=== PATIENT | male | born 1930 | race Caucasian/White ===

== ENCOUNTER 2016-07-10 20:11 | Emergency (ER) | payer OTHER, MEDICARE ==
[2016-07-10 21:38] VITALS: TEMP 99.1
--- NOTE | 2016-07-10 21:41 | EDPHY ---
H & P Time Seen by Provider: 07/10/16 20:33 HPI/ROS: HPI Zayas catheter problem. 86-year-old male by ambulance from home with history of chronic debility. Patient is a Zayas catheter. He is with his caregiver. Apparently his caregiver noticed that the Zayas catheter was not draining earlier in the evening. She called his home health care nurse. She came to the house. She apparently tried to flush the catheter by pushing it in and out according to the caregiver. She was unable to flush it. She stated that she did not have a replacement catheter. He was then sent to the emergency department for evaluation. Apparently on transport the Zayas catheter was pulled out. ROS: Constitutional: No fever, no chills. No weakness. Eyes: No discharge. No changes in vision. Respiratory: No cough. No shortness of breath. Cardiac: No chest pain, no palpitations. Gastrointestinal: No abdominal pain, no vomiting, no diarrhea. Genitourinary: As above. Musculoskeletal: As above per Neurological: No headache. Review of systems obtained through his caregiver and the patient. Past medical history: Urinary retention, chronic debility, renal failure, hypernatremia, dysphagia. Social history: Here with caregiver. Has / home health care. Physical Exam: General Appearance: Alert. This patient appears well-hydrated and well- nourished. Eyes: Pupils equal and round no pallor or injection. No lid edema, erythema or injection. : Some bleeding from the penile meatus. Gastrointestinal: Abdomen is soft and nontender, no masses, bowel sounds normal. No focal tenderness at McBurney's point. No Ann sign. Neurological: Motor sensory function i baseline. Skin: Warm and dry, no rashes. Extremities are symmetrical. Psychiatric: No agitation. Database: EKG: Imaging: Procedures: Emergency department course: Zayas catheter easily replaced with a 16 Romanian coude tip catheter. No complications. Good flow. No active hemorrhage. Caregiver feels comfortable going home with him. Return to emergency department precautions discussed. Follow-up reviewed. All of her questions were answered. The patient was discharged in good condition by ambulance back to home with his caregiver. Differential Diagnosis: The differential diagnosis on this patient includes but is not limited to Zayas catheter obstruction, Zayas catheter removal. This represents a partial list of diagnoses considered. These considerations are based on history, physical exam, past history and reassessment. Smoking Status: Never smoked Allergies/Adverse Reactions: No Known Allergies Allergy (Unverified 04/15/11 16:36) Home Medications: Medication Instructions Recorded FLUoxetine 05/31/16 Jalil 05/31/16 Departure - Departure Disposition: Home, Routine, Self-Care Clinical Impression: Dislodged Zayas catheter Condition: Good Instructions: Zayas Catheter Placement and Care (ED) Additional Instructions: Read and follow provided instructions. Follow-up with your home health care nurse tomorrow as discussed. Return to the emergency department for Zayas catheter obstruction, fever or other concerns Referrals: Patient,NotPresent [Primary Care Provider] - As per Instructions
[2016-07-10 21:51] VITALS: RESP 16
[2016-07-10 23:12] VITALS: BP 107/71; PULSE 95; O2SAT 96
== END 2016-07-10 23:08 | disposition home or self-care (01) ==
LOC: EDUNIT#
PROC: 0T9B70Z Drainage of Bladder with Drainage Device, Via Natural or Artificial Opening (ICD-10-PCS; principal; 2016-07-10)
DX: T83.098A Other mechanical complication of other urinary catheter, initial encounter (principal); Y73.8 Miscellaneous gastroenterology and urology devices associated with adverse incidents, not elsewhere classified

== ENCOUNTER 2017-02-26 23:54 | Inpatient (IN) | payer OTHER, MEDICARE ==
[2017-02-26] MEDS ORDERED: NS 1,000 ML IV ONE (23:59)
--- NOTE | 2017-02-27 00:01 | EDPHY ---
H & P HPI/ROS: HPI CHIEF COMPLAINT: Fever at home, TMAX 101 HISTORY OF PRESENT ILLNESS: Patient very pleasant 86-year-old male, significant past medical history for urinary retention, failure to thrive, chronic debility, acute renal failure, hyponatremia, chronic dysphagia he presents emergency room by EMS from private residence where he lives independently with 24 hour caretakers. He presents emergency room for fever 101. The patient has no complaints. However was noted by EMS that was hypoxic 88% on room air. He does not normally wear oxygen. Upon arrival to the emergency room he looks chronically ill. Dehydrated. Dry mucous membranes. And hypoxic. Noted this patient is a DNR on the MOST FORM. Past Medical History: Urinary retention with indwelling Zayas catheter, failure to thrive, chronic debility, acute renal failure, hypernatremia, dysphagia Past Surgical History: Tonsillectomy, pilonidal cyst Social History: Denies daily use of drugs tobacco products been Family History: Noncontributory ROS REVIEW OF SYSTEMS: A comprehensive 10 point review of systems is otherwise negative aside from elements mentioned in the history of present illness. Exam Constitutional appears chronically ill, dehydrated triage nursing summary reviewed, vital signs reviewed, awake/alert. Eyes normal conjunctivae and sclera, EOMI, PERRLA. HENT oropharynx is open, dry, dry secretions in the posterior aspect, normal inspection, atraumatic, dry mucous membranes, no epistaxis, neck supple/ no meningismus, no raccoon eyes. Respiratory clear to auscultation bilaterally, normal breath sounds, no respiratory distress, no wheezing. Cardiovascular rate normal, regular rhythm, no murmur, no edema, distal pulses normal. Gastrointestinal soft, non-tender, no rebound, no guarding, normal bowel sounds, no distension, no pulsatile mass. Genitourinary no CVA tenderness. Musculoskeletal no midline vertebral tenderness, full range of motion, no calf swelling, no tenderness of extremities, no meningismus, good pulses, neurovascularly intact. Skin pink, warm, & dry, no rash, skin atraumatic. Neurologic hard of hearing, awake, alert and oriented x 3, AAOx3, moves all 4 extremities equally, Psychiatric normal mood/affect. Heme/Lymph/Immune no lymphadenopathy. Differential Diagnosis: Includes but is not limited to in a particular order, sepsis, bacteremia, urinary tract infection, aspiration pneumonia, pneumonia, dehydration, electrolyte disturbance, renal failure Medical Decision Making: Plan for this patient IV establishment with IV fluid bolus, full cardiac rn, obtain chest x-ray, blood cultures, lactic acid, urinalysis. Workups. Re-evaluation: X-ray has been reviewed shows left lower lobe pneumonia. Urinalysis reviewed nitrite positive UTI. 0120AM: Patient is hemodynamically stable. On supplemental oxygen for hypoxia. No acute distress. Chest x-ray shows left lower lobe infiltrate. This explains hypoxia. As well as fever to 101. Additionally urinalysis nitrite positive. This was from an indwelling catheter. I have ordered Rocephin and azithromycin. Blood cultures have been pulled. Lactic acid less than 2. No hypotension. Additionally feels dehydrated. Source: Patient, Family, EMS - Personal History Tetanus Vaccine Date: 04/15/2011 - Medical/Surgical History Hx Asthma: No Hx Chronic Respiratory Disease: No Hx Diabetes: No Hx Cardiac Disease: No Hx Renal Disease: No Hx Cirrhosis: No Hx Alcoholism: No Hx HIV/AIDS: No Hx Splenectomy or Spleen Trauma: No Other PMH: hx of stoke, TBI, skin CA - Social History Smoking Status: Never smoked Constitutional: Initial Vital Signs Temperature (C) 36.7 C 02/27/17 00:18 Heart Rate 68 02/27/17 00:18 Respiratory Rate 20 02/27/17 00:18 Blood Pressure 150/78 H 02/27/17 00:18 O2 Sat (%) 90 L 02/27/17 00:18 O2 Delivery Mode Nasal Cannula O2 (L/minute) 3 Allergies/Adverse Reactions: No Known Allergies Allergy (Unverified 04/15/11 16:36) Home Medications: Medication Instructions Recorded Potassium Chloride [Klor-Con 8] 8 meq PO DAILY 05/31/16 Finasteride [Proscar 5 MG (*)] 5 mg PO DAILY 07/10/16 Furosemide [Lasix 20 MG (*)] 20 mg PO BID 07/10/16 Tamsulosin HCl [Flomax 0.4 MG (*)] 0.4 mg PO DAILY 07/10/16 Medical Decision Making - Data Points Laboratory Results: Laboratory Results 02/27/17 00:05 02/27/17 00:05 Microbiology Results: MICROBIOLOGY 02/26/17 09:10 Nasal, Sinus - Swab Respiratory Panel (PCR) - Final No Organism Detected 02/27/17 00:05 Urine,Catheterized Urine Culture - Preliminary Medications Given: Enoxaparin Sodium (Lovenox) 40 mg SC DAILY [facility] Stop: 08/26/17 08:59 Last Admin: 02/27/17 08:29 Dose: 40 mg Furosemide (Lasix) 20 mg PO BIDDIUR [facility] Stop: 08/26/17 15:59 Last Admin: 02/27/17 18:08 Dose: Not Given Azithromycin 500 mg/ Dextrose 255 mls @ 255 mls/hr IV DAILY NICO PRN Reason: Protocol Stop: 03/04/17 01:59 Last Admin: 02/28/17 03:08 Dose: 255 mls Ceftriaxone Sodium/Dextrose (Rocephin 1 Gm (Premix)) 50 mls @ 100 mls/hr IV DAILY NICO PRN Reason: Protocol Stop: 03/30/17 01:59 Last Admin: 02/28/17 02:15 Dose: 50 mls Discontinued Medications Sodium Chloride (Ns) 1,000 mls @ 0 mls/hr IV EDNOW ONE; Wide Open PRN Reason: Protocol Stop: 02/27/17 00:00 Last Admin: 02/27/17 00:44 Dose: 1,000 mls Azithromycin 500 mg/ Dextrose 255 mls @ 255 mls/hr IV EDNOW ONE PRN Reason: Protocol Stop: 02/27/17 02:17 Last Admin: 02/27/17 02:07 Dose: 255 mls Ceftriaxone Sodium/Dextrose (Rocephin 1 Gm (Premix)) 50 mls @ 100 mls/hr IV EDNOW ONE PRN Reason: Protocol Stop: 02/27/17 01:47 Last Admin: 02/27/17 01:27 Dose: 50 mls Departure - Departure Disposition: [facility] Inpatient Acute Clinical Impression: UTI (urinary tract infection) Qualifiers: Urinary tract infection type: acute cystitis Hematuria presence: without hematuria Qualified Code(s): N30.00 - Acute cystitis without hematuria Pneumonia Qualifiers: Pneumonia type: due to unspecified organism Laterality: left Lung location: lower lobe of lung Qualified Code(s): J18.1 - Lobar pneumonia, unspecified organism Condition: Fair
[2017-02-27 00:22] LABS: % IMMATURE GRANULYOCYTES 0.4 % (0.0-1.1); ABSOLUTE IMMATURE GRANULOCYTES 0.05 10^3/uL (0.00-0.10); ADD DIFF? NO; ADD MORPH? NO; ADD SCAN? NO; ATYPICAL LYMPHOCYTE FLAG 10 (0-99); FRAGMENT RBC FLAG 0 (0-99); HEMATOCRIT 35.8 % (40.0-51.0); HEMOGLOBIN 12.5 g/dL (13.7-17.5); LEFT SHIFT FLG 0 (0-99); LIPEMIA HEMOLYSIS FLAG 90 (0-99); MEAN CELL HEMOGLOBIN 31.3 pg (27.9-34.1); MEAN CELL HEMOGLOBIN CONCENTR. 34.9 g/dL (32.4-36.7); MEAN CELL VOLUME 89.5 fL (81.5-99.8); MEAN PLATELET VOLUME 10.9 fL (8.7-11.7); PLATELET CLUMPS FLAG 10 (0-99); PLATELET COUNT 207 10^3/uL (150-400); RED CELL DISTRIBUTION WIDTH 12.8 % (11.5-15.2)
[2017-02-27 00:25] LABS: COLOR YELLOW; LEUKOCYTE ESTERASE,URINE 2+ (NEGATIVE); NITRITE,URINE POSITIVE (NEGATIVE)
[2017-02-27 00:27] LABS: AMORPHOUS PRESENT /hpf (NONE-1+); BACTERIA TRACE /hpf (NONE SEEN); WBC,URINE 15-25 /hpf (0-3)
[2017-02-27 00:31] LABS: INR 1.17 (0.83-1.16); PROTIME(PATIENT) 14.9 SEC (12.0-15.0)
[2017-02-27 00:32] LABS: APTT 29.2 SEC (23.0-38.0)
[2017-02-27 00:43] LABS: ALANINE AMINOTRANSFERASE 30 IU/L (21-72); ALBUMIN 3.8 g/dL (3.5-5.0); ALKALINE PHOSPHATASE 59 IU/L (38-126); ANION GAP 13 mEq/L (8-16); ASPARTATE AMINOTRANSFERASE 23 IU/L (17-59); BILIRUBIN,TOTAL 1.7 mg/dL (0.1-1.4); BILIRUBIN-CONJUGATED 0.2 mg/dL (0.0-0.5); BILIRUBIN-UNCONJUGATED 1.5 mg/dL (0.0-1.1); CARBON DIOXIDE 22 mEq/l (22-31); CHLORIDE 96 mEq/L (97-110); CREATININE 1.2 mg/dL (0.7-1.3); GLOMERULAR FILTRATION RATE 57; GLUCOSE 114 mg/dL (70-100); POTASSIUM 4.3 mEq/L (3.5-5.2); SODIUM 131 mEq/L (134-144); TOTAL PROTEIN 7.1 g/dL (6.3-8.2)
[2017-02-27] MEDS ORDERED: AZITHROMYCIN IV 500 MG in D5W 250 ML IV ONE (01:18)
[2017-02-27 01:23] LABS: TROPONIN I < 0.012 ng/mL (0.000-0.034)
[2017-02-27] MEDS ORDERED: ACETAMINOPHEN 650 MG SUPP PR PRN (04:39)
[2017-02-27] MEDS ORDERED: ONDANSETRON 4 MG/2 ML VIAL IVP PRN (04:39)
[2017-02-27] MEDS ORDERED: ACETAMINOPHEN 325 MG TAB PO PRN (04:39)
[2017-02-27] MEDS ORDERED: NS 1,000 ML IV SCH (04:45)
[2017-02-27] MEDS: ENOXAPARIN 40 MG/0.4 ML SYR SC SCH (08:29)
--- NOTE | 2017-02-27 08:39 | GHP ---
[f rep st] HISTORY AND PHYSICAL DATE OF ADMISSION: 02/27/2017 SOURCE: Patient able to provide majority of the history. His EMR was also reviewed. Patient is zeus te self spoken and takes some time to answer questions but are consistent with EMR. CHIEF COMPLAINT: Fever. HISTORY OF PRESENT ILLNESS: This is a very pleasant 86-year-old gentleman, who lives in his home wit h 24 hour caregivers, who presents to the emergency department today with complaints of 2-day history of fevers. Patient states that he has been doing quite well at home with assistance of his personal aides, and has not required any hospitalization or evaluation since August of 2016. Patient states t hat he has been feeling more fatigued since yesterday. He had a measured fever of 101 at home. Adamaris ent states he has been having increasing cough and some shortness of breath just over the course of t he afternoon to evening. Patient denies any bladder pain or flank pain. He does have a chronic indw elling Zayas for history of urinary retention. Zayas catheter was changed on Friday. No known sick contacts. Patient is predominantly dependent upon wheelchair, but more recently states that he was increasing mobility with assistance of PT and use of a walker at home. REVIEW OF SYSTEMS: Positive for fevers. No chills or sweats. SKIN: No reported rashes or sores. ENT: Some congestion. No sore throat. CV: No chest pain, palpitations. RESPIRATORY: Some dyspne a and cough as above in HPI. GI: No nausea, vomiting, abdominal pain, diarrhea. : No bladder pa in or flank pain. Patient with chronic Zayas as noted above. MUSCULOSKELETAL: Patient denies any p ain. NEURO: Patient denies any numbness, tingling or headache. Remainder of review of systems are negative except as noted above. ALLERGIES: No known drug allergies. HOME MEDICATIONS: Flomax, KCl, furosemide and finasteride. PAST MEDICAL HISTORY: Significant for UTI, urinary retention with bladder obstruction, BPH, pneumoni a, history of VRE, hypertension, failure to thrive, history of posterior circulation CVA, cognitive d eficit, basal cell carcinoma, autistic spectrum disorder, leukocytosis, CKD stage III, listed as hard of hearing and dysphagia for which patient is on a pureed nectar-thickened diet. PAST SURGICAL HISTORY: Patient with surgery on his left ear, tonsillectomy, adenoidectomy, pilonidal cyst. FAMILY HISTORY: Significant for diabetes. 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 He lives alone with 24 hour caregivers at [facility]. He does not smoke, drink or do drugs. CODE STATUS: DNR, DNI as consistent with patient's completed MOLST form. PHYSICAL EXAMINATION: VITAL SIGNS: Initial in the ER, blood pressure 150/78, heart rate 68, respira tory rate 20, O2 sat 90% on 3 L by nasal cannula with a temperature of 36.7. On the floor, blood pre ssure 137/83, pulse 84, respiratory rate 18, temperature 36.4 on 3 L by nasal cannula. GENERAL: No acute distress. Pleasant, elderly, frail appearing gentleman. Is lying comfortably in bed asleep. He wakes easily. HEAD: Normocephalic atraumatic. EYES: Extraocular muscles grossly intact. Patie nt tracks appropriately. No scleral icterus or conjunctival injection. ENT: Mucous membranes appea r slightly dry but patient sleeps with his mouth open. No nasal discharge. NECK: Supple. Trachea midline. CV: Regular rate and rhythm. Slightly distant heart sounds. No murmurs appreciated. RES PIRATORY: Patient with coarse breath sounds bilaterally on the left greater than the right. Diminis hed at the bases. No wheezing. ABDOMEN: Positive bowel sounds. Soft, nontender to palpation. No rebound, guarding or masses appreciated. : A Zayas catheter is in place. No suprapubic tendernes s to palpation. EXTREMITIES: No cyanosis, clubbing or edema. Patient with 1+ pedal pulses. MUSCUL OSKELETAL: Patient with significantly decreased strength, 3-4/5. NEUROLOGIC: Grossly nonfocal alth ough patient has generalized weakness. He is able to move his extremities while lying in bed. He gallagher s no facial focal deficits appreciated, and he is awake, alert and oriented x3. He is aware it is . PSYCH: Affect is slightly flat but patient interactive and asks appropriate questions. LABORATORY DATA: WBC 11.9, H and H 12.5 and 35.8, MCV of 89.5, platelet count 207. Absolute neutrop hil count is slightly elevated. No bands. PT 14.9, INR 1.17, PTT 29.2. Lactic acid 1.3. Sodium is 131, potassium 4.3, chloride 96, CO2 is 22, BUN 17, creatinine 1.2, glucose is 114, calcium 9.0, mag nesium 2.0, total bili is 1.7, conjugated 0.2, unconjugated 1.5. ALT 30, AST is 23, alkaline phospha tase 59. Troponin less than 0.012. BTNP is 457. Total protein is 7.1, albumin is 3.8, lipase 73. Blood cultures x2 pending. Urine catheterized specimen is pending. IMAGING: Chest x-ray, image reviewed myself. Report pending. Patient tilted on image. Lungs predominantly c lear. Possible infiltrate in the left lower lobe. ASSESSMENT/PLAN: Pleasant 86-year-old gentleman, with generalized debility and decline and dysphagia , presents with 1-2 day history of fever and cough. 1. Pneumonia left lower lobe. Patient has not had any recent hospital stays in greater than 6 month s. He has been started on azithromycin and Rocephin at this time. Patient without systemic inflamma tory response syndrome criteria, but blood cultures have been obtained. We will continue with IV ant ibiotics and monitor clinically. Incentive spirometer will be ordered as tolerated. 2. Hypoxia. Patient continues to have intermittent episodes of hypoxia down to mid 80s with supplem ental oxygen at 3 L per minute. No previous history of home oxygen requirements. Continue to titrat e as tolerated. 3. Fever. Patient has not had any documented fever since arrival to the emergency department. We w ill continue to monitor. Cultures as noted above. 4. Catheter associated urinary tract infection present on admission. Patient does have a history of vancomycin-resistant Enterococcus and has been placed on precautions while awaiting cultures. Stephan Capps at this time. 5. Anemia, likely of chronic disease. Patient without any events of acute gastrointestinal bleed. We will continue to monitor with a.m. CBC. 6. Hyponatremia, likely related to hypovolemia. We will supplement with IV fluids. 7. Hypochloridemia related to hyponatremia. IV fluids as noted above. 8. Chronic kidney disease stage III. Baseline creatinine appears to be 0.9-1.0. We will continue w ith IV fluids and repeat BMP in the morning. 9. Hyperbilirubinemia. Unconjugated elevated bilirubin, suggestive of possibly Gilbert versus or po ssibly of decreased hepatic function in the setting of acute illness. We will continue IV fluids and repeat LFTs in the morning. 10. Leukocytosis, mildly elevated related to pneumonia and possibly urinary tract infection. IV ant ibiotics as noted above. 11. History of dysphagia. A pureed diet and honey-thickened liquids has been ordered. 12. Generalized weakness. Physical Therapy, Occupational Therapy has been consulted as well as Diet andrea consult to assist with patient's nutritional requirements. 13. Fluids, electrolytes and nutrition. IV fluids as noted above for supplemental hydration. Elect rolyte replacement p.r.n. and nutrition with dysphagia diet as above. 14. Prophylaxis. SCDs and Lovenox. CORE: Patient with a completed MOLST form is DNR, DNI. DISPOSITION: Patient has been admitted to the medical floor with continuous pulse ox monitoring and inpatient status. Patient with multiple medical issues and significantly debilitated, and so anticip ate patient will require extended hospital stay. He does have 24 hour caregivers at home. /[id number]/MODL
[2017-02-27 09:50] LABS: % IMMATURE GRANULYOCYTES 0.6 % (0.0-1.1); ABSOLUTE IMMATURE GRANULOCYTES 0.06 10^3/uL (0.00-0.10); ADD DIFF? NO; ADD MORPH? NO; ADD SCAN? NO; ATYPICAL LYMPHOCYTE FLAG 10 (0-99); FRAGMENT RBC FLAG 0 (0-99); HEMATOCRIT 34.7 % (40.0-51.0); HEMOGLOBIN 12.3 g/dL (13.7-17.5); LEFT SHIFT FLG 0 (0-99); LIPEMIA HEMOLYSIS FLAG 90 (0-99); MEAN CELL HEMOGLOBIN 31.4 pg (27.9-34.1); MEAN CELL HEMOGLOBIN CONCENTR. 35.4 g/dL (32.4-36.7); MEAN CELL VOLUME 88.5 fL (81.5-99.8); MEAN PLATELET VOLUME 10.5 fL (8.7-11.7); PLATELET CLUMPS FLAG 10 (0-99); PLATELET COUNT 179 10^3/uL (150-400); RED BLOOD CELL COUNT 3.92 10^6/uL (4.40-6.38)
[2017-02-27 10:29] LABS: ANION GAP 15 mEq/L (8-16); CALCIUM 8.5 mg/dL (8.5-10.4); CARBON DIOXIDE 20 mEq/l (22-31); CHLORIDE 99 mEq/L (97-110); GLOMERULAR FILTRATION RATE > 60; GLUCOSE 101 mg/dL (70-100); MAGNESIUM 1.9 mg/dL (1.6-2.3); POTASSIUM 4.1 mEq/L (3.5-5.2); SODIUM 134 mEq/L (134-144)
--- NOTE | 2017-02-27 15:41 | HOSPPROG ---
Hospitalist Progress Note Assessment/Plan: #CAP vs aspiration PNA: cont IV abx for now. He failed video swallow in past and was recommended NPO status, but he refused #Chronic dysphagia: failed video swallow in Nov; recommended to be NPO. He declined that and PEG tube. 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 Afebrile here #Pyuria: may be colonization with chronic stover. On IV ceftriaxone. Await culture #Hypovolemic hyponatremia: improved with IVFs #Diet: dysphagia #Disp: warrants inpt admission with PNA, possible UTI. Cont IV abx Subjective: denies cough Objective: Vital Signs Temp Pulse Resp BP Pulse Ox 36.6 C 76 20 117/68 94 02/27/17 12:00 02/27/17 12:00 02/27/17 12:00 02/27/17 12:00 02/27/17 12:00 Laboratory Results 02/27/17 09:33 02/27/17 09:33 02/26/17 02/27/17 02/28/17 05:59 05:59 05:59 Intake Total 1350 Output Total 1650 Balance -300 PT 14.9 SEC (12.0-15.0) 02/27/17 00:05 INR 1.17 (0.83-1.16) H 02/27/17 00:05 - Physical Exam Constitutional: no apparent distress, chronically ill appearing Eyes: PERRL Ears, Nose, Mouth, Throat: poor dentition, dry mucous membranes Cardiovascular: regular rate and rhythym, no murmur, rub, or gallop Respiratory: rhonchi Gastrointestinal: normoactive bowel sounds, soft, non-tender abdomen Genitourinary: stover in urethra Skin: warm Neurologic: CN II-XII Intact ICD10 Worksheet Patient Problems: Problems Problem Status Onset Pneumonia Acute UTI (urinary tract infection) Acute Failure to thrive Active Hypertensive disorder, systemic arterial Active mechanical fall Active Ataxia following other cerebrovascular disease Acute Basal cell adenocarcinoma Acute Frontal lobe and executive function deficit Acute Leukocytosis, unspecified Acute Palliative care encounter Acute Renal insufficiency, mild Acute Urinary retention Acute VRE (vancomycin-resistant Enterococci) Acute ~09/06/16
--- NOTE | 2017-02-27 17:53 | ASMTCMCOM ---
[facility] Note CM Note Notes: Pt lives at home with 24/7 caregivers through [facility], PT/OT to [facility] rosado w/f. Date Signed: 02/27/2017 05:52 PM Electronically Signed By:Jennifer Gleason RN
[2017-02-27] MEDS: FUROSEMIDE 20 MG TAB PO SCH (18:08)
[2017-02-28] MEDS: AZITHROMYCIN IV 500 MG in D5W 250 ML IV SCH ×2 (03:08→08:51)
[2017-02-28 05:31] LABS: HEMATOCRIT 33.9 % (40.0-51.0); HEMOGLOBIN 11.8 g/dL (13.7-17.5); MEAN CELL HEMOGLOBIN 31.1 pg (27.9-34.1); MEAN CELL HEMOGLOBIN CONCENTR. 34.8 g/dL (32.4-36.7); MEAN CELL VOLUME 89.4 fL (81.5-99.8); RED BLOOD CELL COUNT 3.79 10^6/uL (4.40-6.38); RED CELL DISTRIBUTION WIDTH 12.7 % (11.5-15.2)
[2017-02-28] MEDS: ENOXAPARIN 40 MG/0.4 ML SYR SC SCH (08:50)
[2017-02-28] MEDS: FUROSEMIDE 20 MG TAB PO SCH ×2 (08:50→15:53)
[2017-02-28] MEDS: FINASTERIDE 5 MG TAB PO SCH (08:50)
[2017-02-28] MEDS: TAMSULOSIN HCL 0.4 MG CAP PO SCH (08:50)
--- NOTE | 2017-02-28 09:12 | HOSPPROG ---
Hospitalist Progress Note Assessment/Plan: #CAP vs aspiration PNA: cont IV abx for now. He failed video swallow in past and was recommended NPO status, but he refused DC on Augmentin #Leukocytosis: resolved #Chronic dysphagia: failed video swallow in Nov; recommended to be NPO. He declined that and PEG tube. 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 Afebrile here #Pyuria: may be colonization with chronic stover. On IV ceftriaxone. Await culture #Hypovolemic hyponatremia: improved with IVFs #Diet: dysphagia #Disp: DC today Subjective: less cough. Tired, did not sleep well. Objective: Vital Signs Temp Pulse Resp BP Pulse Ox 36.9 C 86 16 165/98 H 93 02/28/17 08:00 02/28/17 08:00 02/28/17 08:00 02/28/17 08:00 02/28/17 08:00 Laboratory Results 02/28/17 04:53 02/27/17 09:33 02/27/17 02/28/17 03/01/17 05:59 05:59 05:59 Intake Total 1350 0 Output Total 1650 1850 Balance -300 -1850 PT 14.9 SEC (12.0-15.0) 02/27/17 00:05 INR 1.17 (0.83-1.16) H 02/27/17 00:05 - Physical Exam Constitutional: other (appears brighter today) Ears, Nose, Mouth, Throat: moist mucous membranes Cardiovascular: regular rate and rhythym, no murmur, rub, or gallop Respiratory: rhonchi Gastrointestinal: normoactive bowel sounds, soft, non-tender abdomen Genitourinary: no bladder fullness Skin: warm Musculoskeletal: full muscle strength Neurologic: AAOx3, CN II-XII Intact Psychiatric: interacting appropriately ICD10 Worksheet Patient Problems: Problems Problem Status Onset Pneumonia Acute UTI (urinary tract infection) Acute Failure to thrive Active Hypertensive disorder, systemic arterial Active mechanical fall Active Ataxia following other cerebrovascular disease Acute Basal cell adenocarcinoma Acute Frontal lobe and executive function deficit Acute Leukocytosis, unspecified Acute Palliative care encounter Acute Renal insufficiency, mild Acute Urinary retention Acute VRE (vancomycin-resistant Enterococci) Acute ~09/06/16
--- NOTE | 2017-02-28 10:06 | PDHOMEO2F ---
Home Oxygen Face to Face Home Orders: I certify that a physician or a nurse practitioner or physician's merchandising assistant has had a [id number] encounter with this patient on the date of this order due to the diagnosis listed, which relates to the primary reason the patient requires home oxygen. Alternative treatments have been tried, or considered, and deemed ineffective. It is anticipated that supplemental oxygen will result in improvement with treatment. Home oxygen qualifying diagnosis: Pneumonoa Home oxygen secondary diagnosis: Hypoxia SpO2 on room air (%): 83 Frequency of home oxygen needed: continuous Home oxygen liters per minute: 2 Home oxygen delivery device: nasal cannula Concentrator: No E-tanks for mobility and back up: Yes If ordering portable O2, is the patient mobile in the home?: No I certify that, based on these findings, the home oxygen is medically necessary for this patient for the following length of time. Length of time home oxygen needed: 1 month
--- NOTE | 2017-02-28 11:01 | PDIAF ---
- Diagnosis Diagnosis: PNA, UTI Code Status: Do Not Resuscitate - Medication Management Discharge Medications: Medications to Continue on Transfer Potassium Chloride [Klor-Con 8] 8 meq PO DAILY 05/31/16 [Last Taken Unknown] Finasteride [Proscar 5 MG (*)] 5 mg PO DAILY 07/10/16 [Last Taken Unknown] Furosemide [Lasix 20 MG (*)] 20 mg PO BID 07/10/16 [Last Taken Unknown] Tamsulosin HCl [Flomax 0.4 MG (*)] 0.4 mg PO DAILY 07/10/16 [Last Taken Unknown] levOFLOXACIN [Levofloxacin] 750 mg PO DAILY #7 ml 02/28/17 [Last Taken Unknown] Discharge Medications: Refer to the Discharge Home Medication list for PRN reason. - Orders Services needed: Registered Nurse, Certified Housekeeper/Custodian/Laundry Worker, Physical Therapy Diet Texture: Dysphagia 1 - Pureed, Vantage Thick Liquids, Meds Crushed in Puree - Follow Up Care Current Providers and Referrals: Patient,NotPresent [Unknown] - As per Instructions
--- NOTE | 2017-02-28 12:36 | GDS ---
[f rep st] DISCHARGE SUMMARY DISCHARGE DIAGNOSES: 1. Pneumonia, likely aspiration. 2. Chronic dysphagia. 3. Chronic Stover. 4. Pyuria. 5. Hypovolemic hyponatremia. 6. Leukocytosis. 7. Acute hypoxic respiratory failure. 8. Urinary retention. 9. Benign prostatic hypertrophy. 10. History of vancomycin-resistant enterococci, hypertension, chronic kidney disease 3. HISTORY OF PRESENT ILLNESS: A pleasant 86-year-old male who lives at [facility] with his 24 hour caregivers present in the ER with 2 days of fevers. He has been more fatigued and had a temperature of 101 at home. He has had increased cough and some shortness of breath. Denies bladder or flank pain. Has a chronic indwelling Stover for urinary retention. This was changed on Friday. No sick contacts. Predominantly dependent on wheelchair, but has the assistance of PT and uses a walker at home. HOSPITAL COURSE BY PROBLEM: 1. Pneumonia, likely aspiration: A patient with chronic dysphagia and left lower lobe pneumonia. Was treated with IV antibiotics here will be transitioned to Augmentin for 1 week. 2. Chronic dysphagia: He did fail video swallow in April 2016. At that time, it was recommended he was n.p.o. He declined that, along with a PEG tube. At that time, he had met with Palliative Care and Martha DALEY, and the patient understands the risk of aspiration and possible . 3. Chronic Stover secondary to retention: He is afebrile here. 4. Pyuria may be colonization: culture with Citrobacter and Enterococcus. Suspect colonization with chronic stover. Afebrile.. 5. Acute hypoxic respiratory failure: Secondary to pneumonia. Respiratory PCR is negative. We will check a room air sat and, if needed, we will send home on oxygen. 6. Leukocytosis secondary to pneumonia, resolved with antibiotics. 7. Hypovolemic hyponatremia. This resolved with IV fluids. DISPOSITION: The patient is stable for discharge. He will be discharged with his 30/12 caregivers, along with PT at home. NEW MEDICATIONS: Augmentin. FOLLOWUP: With his primary care physician. /[id number]/MODL MTDD
--- NOTE | 2017-02-28 15:53 | ASMTCMCOM ---
CM Note CM Note Notes: Pt has 24/ caregivers as well as homecare through [facility]. Pt will dc Friday, CM will need to call [facility] stretcher transport. Date Signed: 02/28/2017 03:52 PM Electronically Signed By:Jennifer Gleason RN
[2017-03-01 06:07] LABS: ANION GAP 11 mEq/L (8-16); CALCIUM 8.5 mg/dL (8.5-10.4); CARBON DIOXIDE 23 mEq/l (22-31); CHLORIDE 99 mEq/L (97-110); GLOMERULAR FILTRATION RATE > 60; GLUCOSE 80 mg/dL (70-100); POTASSIUM 4.1 mEq/L (3.5-5.2); SODIUM 133 mEq/L (134-144)
[2017-03-01 07:46] VITALS: BP 143/82; PULSE 74; RESP 16; TEMP 98.3; O2SAT 91
[2017-03-01] MEDS: AZITHROMYCIN IV 500 MG in D5W 250 ML IV SCH (08:59)
[2017-03-01] MEDS: TAMSULOSIN HCL 0.4 MG CAP PO SCH (08:59)
[2017-03-01] MEDS: ENOXAPARIN 40 MG/0.4 ML SYR SC SCH (08:59)
[2017-03-01] MEDS: FUROSEMIDE 20 MG TAB PO SCH (08:59)
[2017-03-01] MEDS: FINASTERIDE 5 MG TAB PO SCH (08:59)
--- NOTE | 2017-03-01 10:28 | PDIAF ---
- Diagnosis Diagnosis: PNA, UTI Code Status: Do Not Resuscitate - Medication Management Discharge Medications: Medications to Continue on Transfer Potassium Chloride [Klor-Con 8] 8 meq PO DAILY 05/31/16 [Last Taken Unknown] Finasteride [Proscar 5 MG (*)] 5 mg PO DAILY 07/10/16 [Last Taken Unknown] Furosemide [Lasix 20 MG (*)] 20 mg PO BID 07/10/16 [Last Taken Unknown] Tamsulosin HCl [Flomax 0.4 MG (*)] 0.4 mg PO DAILY 07/10/16 [Last Taken Unknown] levOFLOXACIN [Levofloxacin] 750 mg PO DAILY #7 ml 02/28/17 [Last Taken Unknown] Discharge Medications: Refer to the Discharge Home Medication list for PRN reason. - Orders Services needed: Registered Nurse, Certified [employer] Teacher, Physical Therapy Diet Texture: Dysphagia 1 - Pureed, Riggins Thick Liquids, Meds Crushed in Puree - Follow Up Care Current Providers and Referrals: Patient,NotPresent [Unknown] - As per Instructions
--- NOTE | 2017-03-01 10:28 | HOSPPROG ---
Hospitalist Progress Note Assessment/Plan: #CAP vs aspiration PNA: cont IV abx for now. He failed video swallow in past and was recommended NPO status, but he refused DC on Augmentin #Leukocytosis: resolved #Chronic dysphagia: failed video swallow in Nov; recommended to be NPO. He declined that and PEG tube. 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 Afebrile here #Pyuria: may be colonization with chronic stover. On IV ceftriaxone. Await culture #Hypovolemic hyponatremia: improved with IVFs #Diet: dysphagia #Disp: DC today Subjective: feels better. Less cough. At baseline per his caregivers Objective: Vital Signs Temp Pulse Resp BP Pulse Ox 36.8 C 74 16 143/82 H 91 L 03/01/17 07:44 03/01/17 07:44 03/01/17 07:44 03/01/17 07:44 03/01/17 07:44 Laboratory Results 02/28/17 04:53 03/01/17 04:59 02/28/17 03/01/17 03/02/17 05:59 05:59 05:59 Intake Total 0 355 Output Total 1850 825 Balance -1850 -470 PT 14.9 SEC (12.0-15.0) 02/27/17 00:05 INR 1.17 (0.83-1.16) H 02/27/17 00:05 - Physical Exam Constitutional: no apparent distress Eyes: PERRL Ears, Nose, Mouth, Throat: poor dentition Cardiovascular: regular rate and rhythym, no murmur, rub, or gallop Respiratory: no respiratory distress Gastrointestinal: normoactive bowel sounds Genitourinary: no bladder fullness Skin: warm, normal color Musculoskeletal: full muscle strength Neurologic: AAOx3, CN II-XII Intact Psychiatric: interacting appropriately ICD10 Worksheet Patient Problems: Problems Problem Status Onset Pneumonia Acute UTI (urinary tract infection) Acute Failure to thrive Active Hypertensive disorder, systemic arterial Active mechanical fall Active Ataxia following other cerebrovascular disease Acute Basal cell adenocarcinoma Acute Frontal lobe and executive function deficit Acute Leukocytosis, unspecified Acute Palliative care encounter Acute Renal insufficiency, mild Acute Urinary retention Acute VRE (vancomycin-resistant Enterococci) Acute ~09/06/16
--- NOTE | 2017-03-01 10:50 | GDS ---
[f rep st] DISCHARGE SUMMARY DISCHARGE DIAGNOSES: 1. Pneumonia, likely aspiration. 2. Chronic dysphagia. 3. Chronic Zayas. 4. Pyuria. 5. Hypovolemic with hyponatremia. 6. Leukocytosis. 7. Acute on chronic hypoxemic respiratory failure. 8. Urinary retention. 9. Benign prostatic hypertrophy. 10. Colonization with Citrobacter and Enterococcus. Please see discharge summary dated on 02/28/2017 for full details. The patient remained 1 more night due to persistent deconditioning. HOSPITAL COURSE: 1. Citrobacter/enteritis Enterococcus on urine culture: Suspect that this is colonization given chr onic Zayas. His leukocytosis has resolved on treatment for his pneumonia. 2. Additional diagnoses on this 02/28/2017. DISPOSITION: The patient is stable for discharge with his 24-care caregivers. DIET: It was recommended to be n.p.o., but per his request and MD BOYER they are aware of the risks an d willing to have him eat dysphagia diet. FOLLOWUP: PCP. /[id number]/MODL
--- NOTE | 2017-03-01 10:54 | ASMTCMCOM ---
CM Note CM Note Notes: CM Discharge Note: Patient discharging home wo [facility] where he has 24 hour care. Spoke w [facility] who will resume home care services (RN/PT). Arranged transport through [facility] who will provide BLS transport and bill patient's [employer] insurance. Above information communicated to Angelia, patient's primary caregiver. Date Signed: 03/01/2017 10:54 AM Electronically Signed By:Trina Duggan RN
== END 2017-03-01 13:49 | disposition home or self-care (01) | DRG 177 ==
LOC: EDUNIT# → F3E 02-27 03:27
PROVIDERS: ADMIT Family Medicine; ATTEND Family Medicine
DX: J69.0 Pneumonitis due to inhalation of food and vomit (principal); J96.01 Acute respiratory failure with hypoxia; T83.511A Infection and inflammatory reaction due to indwelling urethral catheter, initial encounter; E87.1 Hypo-osmolality and hyponatremia; N40.1 Benign prostatic hyperplasia with lower urinary tract symptoms; R33.8 Other retention of urine; N13.8 Other obstructive and reflux uropathy; I12.9 Hypertensive chronic kidney disease with stage 1 through stage 4 chronic kidney disease, or unspecified chronic kidney disease; N18.3 Chronic kidney disease, stage 3 (moderate); D63.1 Anemia in chronic kidney disease; R13.10 Dysphagia, unspecified; Z86.73 Personal history of transient ischemic attack (TIA), and cerebral infarction without residual deficits; Z87.440 Personal history of urinary (tract) infections; Z96.0 Presence of urogenital implants; Z66 Do not resuscitate
CPT/HCPCS: 92526-GN; 92610-GN; 96365; 97162-GP; 97166-GO; 97530-GO; 97530-GP; 97535-GO; G8978-GP-CM; G8979-GP-CL; G8987-GO-CM; G8988-GO-CK; G8989-GO-CL; G8996-GN-CK; G8997-GN-CK; J0456; J0696; J1650

== ENCOUNTER 2017-09-17 11:18 | Inpatient (IN) | payer OTHER, MEDICARE ==
--- NOTE | 2017-09-17 11:24 | EDPHY ---
H & P Time Seen by Provider: 09/17/17 11:24 HPI/ROS: CHIEF COMPLAINT: Cough HISTORY OF PRESENT ILLNESS: The patient presents the ED for evaluation of cough for the past day. He reportedly has had some hypoxemia. He had been on oxygen 2 months ago which was discontinued secondary to normalization of his oxygen saturation. The patient is ambulatory to a minimal degree at baseline. There has been no history of vomiting, abdominal pain or reported history of chest pain. There is no history of fever. There is no history of asymmetric calf pain or swelling. REVIEW OF SYSTEMS: A comprehensive 10 point review of systems is otherwise negative aside from elements mentioned in the history of present illness. Source: Patient - Personal History Tetanus Vaccine Date: 04/15/2011 - Medical/Surgical History Hx Asthma: No Hx Chronic Respiratory Disease: No Hx Diabetes: No Hx Cardiac Disease: No Hx Renal Disease: No Hx Cirrhosis: No Hx Alcoholism: No Hx HIV/AIDS: No Hx Splenectomy or Spleen Trauma: No Other PMH: hx of stoke, TBI, skin CA - Social History Smoking Status: Never smoked - Physical Exam Exam: General Appearance: Elderly male Head: Surgical evidence of prior skin cancer excision involving left ear Eyes: Pupils equal and round no pallor or injection ENT, Mouth: Mucous membranes moist Respiratory: Distant breath sounds, faint crackles bilateral lung bases Cardiovascular: Regular rate and rhythm Gastrointestinal: Abdomen is soft and nontender, no masses, bowel sounds normal Neurological: Moves all 4 extremities with 5/5 strength Skin: Warm and dry, no rashes Musculoskeletal: Neck is supple nontender Extremities: symmetrical, full range of motion Constitutional: Initial Vital Signs Temperature (C) 37.3 C 09/17/17 11:24 Heart Rate 85 09/17/17 11:24 Respiratory Rate 16 09/17/17 11:24 Blood Pressure 125/69 H 09/17/17 11:24 O2 Sat (%) 80 L 09/17/17 11:24 O2 Delivery Mode Room Air Allergies/Adverse Reactions: No Known Allergies Allergy (Unverified 04/15/11 16:36) Home Medications: Medication Instructions Recorded Potassium Chloride [Klor-Con 8] 8 meq PO DAILY 05/31/16 Finasteride [Proscar 5 MG (*)] 5 mg PO DAILY 07/10/16 Furosemide [Lasix 20 MG (*)] 20 mg PO BID 07/10/16 Tamsulosin HCl [Flomax 0.4 MG (*)] 0.4 mg PO DAILY 07/10/16 levOFLOXACIN [Levofloxacin] 750 mg PO DAILY #7 ml 02/28/17 Medical Decision Making - Diagnostics Imaging Results: Imaging Impressions Chest X-Ray 09/17/17 11:27 Impression: Bilateral lower lung pneumonia with a left pleural effusion. ED Course/Re-evaluation: The patient presents to the ED for hypoxemia and cough. The patient does not have SIRS criteria but does have clinical and radiographic evidence of pneumonia. Blood cultures x2 are obtained. The patient was given 750 mg of IV Levaquin. His hypoxemia he will be admitted to the hospitalist service. Consultation was made with the hospitalist at 12:40 p.m.. Differential Diagnosis: Differential diagnosis considered includes asthma, bronchitis, pneumonia - Data Points Laboratory Results: Laboratory Results 09/17/17 11:15 09/17/17 11:15 09/17/17 09/17/17 11:15 11:15 WBC 8.22 10^3/uL 10^3/uL (3.80-9.50) RBC 4.02 10^6/uL L 10^6/uL (4.40-6.38) Hgb 12.4 g/dL L g/dL (13.7-17.5) Hct 37.2 % L % (40.0-51.0) MCV 92.5 fL fL (81.5-99.8) MCH 30.8 pg pg (27.9-34.1) MCHC 33.3 g/dL g/dL (32.4-36.7) RDW 13.3 % % (11.5-15.2) Plt Count 172 10^3/uL 10^3/uL (150-400) MPV 10.4 fL fL (8.7-11.7) Neut % (Auto) 69.7 % % (39.3-74.2) Lymph % (Auto) 13.4 % L % (15.0-45.0) [place] % (Auto) 10.6 % % (4.5-13.0) Eos % (Auto) 5.0 % % (0.6-7.6) Baso % (Auto) 0.6 % % (0.3-1.7) Nucleat RBC Rel Count 0.0 % % (0.0-0.2) Absolute Neuts (auto) 5.73 10^3/uL 10^3/uL (1.70-6.50) Absolute Lymphs (auto) 1.10 10^3/uL 10^3/uL (1.00-3.00) Absolute Monos (auto) 0.87 10^3/uL H 10^3/uL (0.30-0.80) Absolute Eos (auto) 0.41 10^3/uL H 10^3/uL (0.03-0.40) Absolute Basos (auto) 0.05 10^3/uL 10^3/uL (0.02-0.10) Absolute Nucleated RBC 0.00 10^3/uL 10^3/uL (0-0.01) Immature Gran % 0.7 % % (0.0-1.1) Immature Gran # 0.06 10^3/uL 10^3/uL (0.00-0.10) Sodium 140 mEq/L mEq/L (135-145) Potassium 4.3 mEq/L mEq/L (3.5-5.2) Chloride 101 mEq/L mEq/L (97-110) Carbon Dioxide 25 mEq/l mEq/l (22-31) Anion Gap 14 mEq/L mEq/L (8-16) BUN 16 mg/dL mg/dL (7-23) Creatinine 1.1 mg/dL mg/dL (0.7-1.3) Estimated GFR > 60 Glucose 154 mg/dL H mg/dL (70-100) Calcium 8.5 mg/dL mg/dL (8.5-10.4) Departure - Departure Disposition: [facility] Inpatient Acute Clinical Impression: Ataxia following other cerebrovascular disease, Frontal lobe and executive function deficit, Basal cell adenocarcinoma Pneumonia Qualifiers: Laterality: bilateral Lung location: lower lobe of lung Condition: Good Referrals: Patient,NotPresent [Unknown] - As per Instructions
[2017-09-17 11:34] LABS: PLATELET COUNT 172 10^3/uL (150-400)
[2017-09-17] MEDS ORDERED: ACETAMINOPHEN 325 MG TAB PO PRN (15:18)
[2017-09-17] MEDS ORDERED: ONDANSETRON 4 MG/2 ML VIAL IVP PRN (15:18)
[2017-09-17] MEDS ORDERED: ONDANSETRON DISINTEGRATING 4 MG TAB PO PRN (15:18)
[2017-09-17] MEDS ORDERED: ALBUTEROL 3 ML DEYVIAL IH PRN (16:28)
[2017-09-17] MEDS: NS 1,000 ML IV SCH (16:30)
--- NOTE | 2017-09-17 16:31 | PDGENHP ---
History and Physical - Chief Complaint cough - History of Present Illness 87 yo male with h/o cognitive changes, dysphagia, and failure to thrive presents to ED with cough. His caregiver is at the bedside. She reports cough started yesterday and he quickly appeared quite ill, with weakness and decreased oral intake. +fevers. No CP or SOB. Cough is wet. He has h/o aspiration and is on a pureed diet at home. No reported aspiration event. In ED, CXR was concerning for PNA. Blood cultures were drawn, he was given IV Levaquin and is admitted to the hospital for further management. History Information - Allergies/Home Medication List Allergies/Adverse Reactions: No Known Allergies Allergy (Unverified 04/15/11 16:36) Home Medications: Potassium Chloride [Klor-Con 8] 8 meq PO DAILY 05/31/16 [Last Taken 09/17/17] Finasteride [Proscar 5 MG (*)] 5 mg PO DAILY18 07/10/16 [Last Taken 09/16/17] Furosemide [Lasix 20 MG (*)] 20 mg PO BID 07/10/16 [Last Taken 09/17/17] Tamsulosin HCl [Flomax 0.4 MG (*)] 0.4 mg PO DAILY18 07/10/16 [Last Taken ] I have personally reviewed and updated: family history, medical history, social history, surgical history Past Medical History: Left ear infected wound. Occasional leg swelling. Hard of hearing. Debility. - Past Medical History CVA Additional medical history: CKD, BPH with SOLIS and chronic indwelling stover, h/o UTI and VRE, h/o posterior circulation CVA, Basal cell carcinoma, Failure to thrive - Surgical History Additional surgical history: L ear resection for infected wound following a fall. 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 Lives independently with 24 hr caregivers. Has MDPOA. He is DNR. Review of Systems Review of Systems: Physical Exam Physical Exam: Temp Pulse Resp BP Pulse Ox 37.9 C 92 20 143/68 H 92 09/17/17 14:36 09/17/17 14:36 09/17/17 14:36 09/17/17 14:36 09/17/17 13:57 O2 (L/minute) 4 Lab Data & Imaging Review 09/17/17 11:15 09/17/17 11:15 WBC 8.22 10^3/uL (3.80-9.50) 09/17/17 11:15 RBC 4.02 10^6/uL (4.40-6.38) L 09/17/17 11:15 Hgb 12.4 g/dL (13.7-17.5) L 09/17/17 11:15 Hct 37.2 % (40.0-51.0) L 09/17/17 11:15 MCV 92.5 fL (81.5-99.8) 09/17/17 11:15 MCH 30.8 pg (27.9-34.1) 09/17/17 11:15 MCHC 33.3 g/dL (32.4-36.7) 09/17/17 11:15 RDW 13.3 % (11.5-15.2) 09/17/17 11:15 Plt Count 172 10^3/uL (150-400) 09/17/17 11:15 MPV 10.4 fL (8.7-11.7) 09/17/17 11:15 Neut % (Auto) 69.7 % (39.3-74.2) 09/17/17 11:15 Lymph % (Auto) 13.4 % (15.0-45.0) L 09/17/17 11:15 [place] % (Auto) 10.6 % (4.5-13.0) 09/17/17 11:15 Eos % (Auto) 5.0 % (0.6-7.6) 09/17/17 11:15 Baso % (Auto) 0.6 % (0.3-1.7) 09/17/17 11:15 Nucleat RBC Rel Count 0.0 % (0.0-0.2) 09/17/17 11:15 Absolute Neuts (auto) 5.73 10^3/uL (1.70-6.50) 09/17/17 11:15 Absolute Lymphs (auto) 1.10 10^3/uL (1.00-3.00) 09/17/17 11:15 Absolute Monos (auto) 0.87 10^3/uL (0.30-0.80) H 09/17/17 11:15 Absolute Eos (auto) 0.41 10^3/uL (0.03-0.40) H 09/17/17 11:15 Absolute Basos (auto) 0.05 10^3/uL (0.02-0.10) 09/17/17 11:15 Absolute Nucleated RBC 0.00 10^3/uL (0-0.01) 09/17/17 11:15 Immature Gran % 0.7 % (0.0-1.1) 09/17/17 11:15 Immature Gran # 0.06 10^3/uL (0.00-0.10) 09/17/17 11:15 Sodium 140 mEq/L (135-145) 09/17/17 11:15 Potassium 4.3 mEq/L (3.5-5.2) 09/17/17 11:15 Chloride 101 mEq/L (97-110) 09/17/17 11:15 Carbon Dioxide 25 mEq/l (22-31) 09/17/17 11:15 Anion Gap 14 mEq/L (8-16) 09/17/17 11:15 BUN 16 mg/dL (7-23) 09/17/17 11:15 Creatinine 1.1 mg/dL (0.7-1.3) 09/17/17 11:15 Estimated GFR > 60 09/17/17 11:15 Glucose 154 mg/dL (70-100) H 09/17/17 11:15 Calcium 8.5 mg/dL (8.5-10.4) 09/17/17 11:15 Procalcitonin 0.05 ng/mL (0.02-0.10) 09/17/17 11:15 Assessment & Plan Assessment: Acute hypoxemic respiratory failure 2/2 viral URI - supportive care, nebs, start guaifenesin if/when able to take po. PCT neg, doubt bacterial PNA at this point. CXR pers reviewed and interpreted - no convincing consolidation, ?viral process. -observe off atbx Dysphagia - h/o aspiration, he is on pureed diet. With current status, needs to be NPO. This may be a symptom of advanced Parkinsons. -NPO until speech/swallow eval -IVF's to maintain hydration Tremor - suspect parkinsons with masked facies, cogwheeling, dysphagia and cognitive changes -outpt neurology consult is in order though this seems to be advanced stage. SOLIS 2/2 BPH - chronic indwelling stover, changed 3 weeks ago -change stover Neck mass -unclear chronicity -check u/s DVT PPLX - Lovenox DNR Dispo - anticipate >48 hrs hospitalization for ongoing management of hypoxemia, dysphagia and viral URI. Will need PT/OT evaluations and may warrant SNF. Given what appears to be a poor quality of life with failure to thrive and suspicion for advanced parkinsons, palliative care consult is appropriate.
[2017-09-17] MEDS: ACETAMINOPHEN 650 MG SUPP PR PRN (17:56)
[2017-09-18] MEDS: NS 1,000 ML IV SCH ×2 (05:38→19:35)
--- NOTE | 2017-09-18 05:46 | PDMN ---
Medical Necessity Medical necessity: Pt meets IP criteria per MD; est los >2 mn for eval/tx of hypoxemia, dysphagia, viral upper respiratory infection w/failure to thrive & neck mass; admit for further workup/monitoring, supportive care, IVFs, therapies & Palliative consult; comorbid advanced age, CVA, suspected advanced parkinsons, falls, CKD, BPH w/bladder outlet obstruction & chronic indwelling stover, UTI & VRE; per H&P & order 09/17/17
[2017-09-18] MEDS: ENOXAPARIN 40 MG/0.4 ML SYR SC SCH (08:14)
--- NOTE | 2017-09-18 12:15 | ASMTCMCOM ---
CM Note CM Note Notes: Pt admitted w/weakness, cough, decreased oral intake, ?PNA. Per H&P, pt lives at home and has 24 hr caregivers. Awaiting therapy recommendations. Palliative care consult ordered. CM will follow. Date Signed: 09/18/2017 12:14 PM Electronically Signed By:Qi Lagos RN
--- NOTE | 2017-09-18 13:19 | WOCRNPDOC ---
WOCRN Advanced Assessment Note - Skin Integrity Problem, Advanced Assess Coccyx Dressing Type: Mepilex Border (Sacral) Dressing Description: Clean/Dry, Intact Exudate Amount: Scant Exudate Color: Reddish/Yellow Exudate Characteristic(s): Serosanguinous Integumentary Issue Intervention: Dressing Removed, Barrier Cream Applied ( Calazime) Breanna Wound Tissue: Blanching, Erythema Breanna Wound Swelling: None Wound Bed Color: Red Wound Edges: Attached Site Odor: None Site Measurement - Head-to-Toe Length X Width X Depth (cm): [id number] Skin Integrity Problem Comment: Large reddened area to sacrum and bilateral upper buttocks with several diffuse pinpoint partial thickness openings, appear to be moisture related dermatitis. Entire area is blanchable. Patient with documented stage 2 pressure injury to his sacral area in prior hospitalization, with hyperpigmentation possibly due to scarring from prior pressure injuries. Calazime applied to area, and left open to air. Patricia Downs RN from wound care team in room, as well as ANTONIA Montes and patient's home caregiver. Education provided to home caregiver regarding use of TAPS system, offloading the sacrum and heels, and use of calazime cream at home.
--- NOTE | 2017-09-18 13:57 | HOSPPROG ---
Hospitalist Progress Note Assessment/Plan: Acute hypoxemic respiratory failure 2/2 viral URI - supportive care, nebs. PCT neg, doubt bacterial PNA at this point. CXR pers reviewed and interpreted - no convincing consolidation, suspect viral process. -cont to observe off atbx Dysphagia - h/o aspiration, he is on pureed diet. May be a symptom of advanced Parkinsons. -speech / swallow eval - at baseline -d/c IVF's Tremor - suspect parkinsons with masked facies, cogwheeling, dysphagia and cognitive changes -outpt neurology consult is in order though this seems to be advanced stage. SOLIS 2/2 BPH - chronic indwelling stover, changed 3 weeks ago -changed stover Neck mass -unclear chronicity -u/s unrevealing DVT PPLX - Lovenox DNR Dispo - cont inpt Goals of care - palliative care consult to discuss goals of care. Pt is not decisional. Suspect he has advanced parkinson's, previously undiagnosed. May benefit from outpt palliative care services. Subjective: Pt is up in chair. Masked facies, drooling. Non-sensical speech. Taking some PO. no fevers. Objective: Vital Signs Temp Pulse Resp BP Pulse Ox 37.6 C 76 20 150/80 H 95 09/18/17 11:38 09/18/17 11:38 09/18/17 11:38 09/18/17 11:38 09/18/17 11:38 Microbiology 09/17/17 13:55 Respiratory Panel (PCR) - Final Nasal, Sinus - Swab Human Rhinovirus/Enterovirus 09/17/17 09/18/17 09/19/17 05:59 05:59 05:59 Intake Total 112 Output Total 550 Balance -438 - Physical Exam Constitutional: no apparent distress Eyes: PERRL Ears, Nose, Mouth, Throat: moist mucous membranes Cardiovascular: regular rate and rhythym Respiratory: no respiratory distress, clear to auscultation Gastrointestinal: normoactive bowel sounds, soft, non-tender abdomen Skin: warm Musculoskeletal: other (+cogwheel rigidity UE's, +resting tremor) Neurologic: AAOx3 ICD10 Worksheet Patient Problems: Problems Problem Status Onset 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
--- NOTE | 2017-09-18 14:49 | ASMTCMCOM ---
CM Note CM Note Notes: Palliative care conference scheduled for tomorrow when pt's main caregiver, Angelia, is available. Met w/pt and caregiver tulio. Conversation w/pt very difficult as he has great difficult getting words out, difficult to hear and long gaps in conversation. Tulio confirmed that he has round the clock private caregivers and also has HHC agency that provides [place] RN and aide to come in once/wk to assist w/bathing. Angelia ([phone]) is main caregiver and will be here tomorrow. CM to meet w/her. pt's MDPOA is Martha Davies ([phone]); she too will hopefully be present for palliative tomorrow. Discussed w/Joseph from palliative care. Anticipate that pt will return home w/caregivers and HHC but plans should seem more clear after palliative and touching base w/primary caregiver tomorrow. Date Signed: 09/18/2017 02:49 PM Electronically Signed By:Qi Lagos RN
[2017-09-18] MEDS: guaiFENesin 600 MG TAB.ER PO SCH ×2 (15:00→21:49)
--- NOTE | 2017-09-18 18:38 | HOSPPROG ---
Hospitalist Progress Note Assessment/Plan: Called to bedside for increased oxygen needs. 5L-->15L 78 y male with dysphagia, prior aspiration PNA and suspected Parkinson's Caregiver was feeding him soup and he coughed and choked, likely aspirated PE: afebrile, HR 100, 86%15L Gen: ill-appearing HEENT: poor dentition, RT suctioning red/yellow sputum CV: tachy Lungs: rhonchi, coarse BS GI: soft, NT Psych: alert #Aspiration pneumonitis -cont RT suctioning. Discussed next steps with caregiver, Angelia, and Martha (MDPOA) . If clinically declines, will move towards comfort care. I reviewed his MOST form that states the same: no intubation or ICU transfer. Critical care time spent: 45 min bedside, reviewing records and d/w caregivers Objective: Vital Signs Temp Pulse Resp BP Pulse Ox 37.2 C 101 H 20 171/88 H 90 L 09/18/17 15:27 09/18/17 15:27 09/18/17 15:27 09/18/17 15:27 09/18/17 15:27 Microbiology 09/17/17 13:55 Respiratory Panel (PCR) - Final Nasal, Sinus - Swab Human Rhinovirus/Enterovirus 09/17/17 09/18/17 09/19/17 05:59 05:59 05:59 Intake Total 112 Output Total 550 350 Balance -438 -350 ICD10 Worksheet Patient Problems: Problems Problem Status Onset 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
[2017-09-19] MEDS: guaiFENesin 600 MG TAB.ER PO SCH ×2 (07:56→21:31)
[2017-09-19] MEDS: ENOXAPARIN 40 MG/0.4 ML SYR SC SCH (09:33)
--- NOTE | 2017-09-19 15:25 | HOSPPROG ---
Hospitalist Progress Note Assessment/Plan: Acute hypoxemic respiratory failure 2/2 viral URI - 15 LPM --> 5 LPM. PCT neg, doubt bacterial PNA at this point. CXR pers reviewed and interpreted - no convincing consolidation, suspect viral process. -cont to observe off atbx -cont supportive care, nebs -recheck PCT in am given aspiration event last night -wean O2 as able Dysphagia - h/o aspiration, he is on pureed diet. He had a significant aspiration event yesterday, requiring 15 LPM. Now back on 5 LPM. 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 Pablo was able to express that he believes he has 6 months of life left, but is not ready for hospice. He is open to outpt palliative care. He wants to be home and does not want to be re-hospitalized. Called MDPOA, but unable to reach. At this time, I feel Pablo is able to make his medical decisions, but he is high risk for deterioration and would need MDPOA to step in if that occurs. Subjective: Pt more awake, able to communicate better today. Taking pureed foods. No fevers. Had aspiration event last night while caregiver was feeding him soup. Denies CP or SOB. Objective: Vital Signs Temp Pulse Resp BP Pulse Ox 37.4 C 79 14 149/83 H 93 09/19/17 12:00 09/19/17 12:00 09/19/17 12:00 09/19/17 12:00 09/19/17 12:00 Microbiology 09/17/17 18:00 - Final Sputum, Expectorated 09/18/17 09/19/17 09/20/17 05:59 05:59 05:59 Intake Total 112 Output Total 550 700 Balance -438 -700 - Physical Exam Constitutional: chronically ill appearing, cachectic Eyes: PERRL Ears, Nose, Mouth, Throat: moist mucous membranes Cardiovascular: regular rate and rhythym Respiratory: no respiratory distress, inspiratory crackles Gastrointestinal: normoactive bowel sounds, soft, non-tender abdomen Skin: warm Musculoskeletal: generalized weakness, other (b/l UE distal contractures) Neurologic: AAOx3, other (masked facies, cogwheel rigidity, +tremor) Psychiatric: interacting appropriately ICD10 Worksheet Patient Problems: Problems Problem Status Onset 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
--- NOTE | 2017-09-19 17:27 | ASMTCMCOM ---
CM Note CM Note Notes: Pt had palliative care conf today. Dc plan is to return home w/30/12 caregivers. See previous CM note for primary caregivers contact info as well as MDPOA's. Pt will have palliative care consult; referral sent to [facility] and notified Shirley at [facility]. Hospice was brought up in palliative, pt not ready for this but open to palliative. 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 CM will folow. Date Signed: 09/19/2017 05:26 PM Electronically Signed By:Qi Lagos, RN
[2017-09-20] MEDS: NS 1,000 ML IV SCH ×2 (05:06→17:03)
--- NOTE | 2017-09-20 09:15 | HOSPPROG ---
Hospitalist Progress Note Assessment/Plan: Acute hypoxemic respiratory failure 2/2 viral URI and suspect ongoing aspiration - 15 LPM --> 6 LPM. Had acute aspiration event 09/18. PCT neg, doubt bacterial PNA. CXR pers reviewed and interpreted - no convincing consolidation, suspect viral process. -cont to observe off atbx -cont supportive care, guaifenesin, nebs -recheck PCT given aspiration event -wean O2 as able Dysphagia - h/o aspiration, he is on pureed diet. He had a significant aspiration event yesterday, requiring 15 LPM. Now back on 6 LPM. 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 Pablo was able to express that he believes he has 6 months of life left, but is not ready for hospice. He is open to outpt palliative care and this will be arranged. He wants to be home and does not want to be re-hospitalized. Called MDPOA, but unable to reach. At this time, I feel Pablo is able to make his medical decisions, but he is high risk for deterioration and would need [facility] to step in if that occurs. Subjective: Pt doing ok. No fevers. Denies CP or SOB. O2 face mask. Objective: Vital Signs Temp Pulse Resp BP Pulse Ox 37.3 C 80 21 H 155/90 H 92 09/20/17 08:09 09/20/17 08:09 09/20/17 08:09 09/20/17 08:09 09/20/17 08:09 Microbiology 09/17/17 18:00 - Final Sputum, Expectorated 09/19/17 09/20/17 09/21/17 05:59 05:59 05:59 Intake Total 823 Output Total 700 700 Balance -700 123 - Physical Exam Constitutional: no apparent distress Eyes: PERRL Ears, Nose, Mouth, Throat: moist mucous membranes, other (drooling) Cardiovascular: regular rate and rhythym Respiratory: no respiratory distress, inspiratory crackles Gastrointestinal: normoactive bowel sounds, soft, non-tender abdomen Skin: warm Musculoskeletal: abnormal gait, generalized weakness Neurologic: other (UE contractures unchanged, cogwheeling, masked facies) ICD10 Worksheet Patient Problems: Problems Problem Status Onset 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
[2017-09-20] MEDS: ENOXAPARIN 40 MG/0.4 ML SYR SC SCH (09:28)
[2017-09-20] MEDS: guaiFENesin 200 MG/10 ML UDL PO SCH ×2 (09:28→21:21)
[2017-09-20] MEDS: guaiFENesin 600 MG TAB.ER PO SCH (11:24)
[2017-09-21] MEDS: ACETAMINOPHEN 650 MG SUPP PR PRN ×2 (04:17→08:21)
[2017-09-21] MEDS: NS 1,000 ML IV SCH (06:15)
[2017-09-21] MEDS: ENOXAPARIN 40 MG/0.4 ML SYR SC SCH (08:24)
[2017-09-21] MEDS: guaiFENesin 200 MG/10 ML UDL PO SCH ×2 (08:24→21:36)
--- NOTE | 2017-09-21 13:17 | WOCRNPDOC ---
WOCRN Advanced Assessment Note - Skin Integrity Problem, Advanced Assess Coccyx Dressing Type: Mepilex Border Dressing Description: Soiled (stool) Exudate Amount: None Exudate Characteristic(s): None Integumentary Issue Intervention: Dressing Changed Breanna Wound Tissue: Blanching, Erythema, Raw, Denuded Skin Integrity Problem Comment: Consult to evaluate patient's coccyx. Raw, denuded skin over coccyx and throughout sacrum, currently blanching. Patient's caregiver reports he is typically able to tell caregivers when he has a BM, however he had stool on his bottom this afternoon when I turned him to assess his skin. Skin is very fragile, which is a risk factor in him developing a pressure injury. Nursing initiated TAPS and Accu-max pump, and these are appropriate to continue. Replaced Mepilex sacral dressing, and repositioned patient on his left side using TAPS. 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 Periwound skin is intact w/ no swelling or erythema. Will have nursing apply Silvasorb gel to site. Wound care does not need to follow this wound ongoing. Left Nose Dressing Type: Open to Air Exudate Characteristic(s): Dried Breanna Wound Tissue: Intact Breanna Wound Swelling: None Wound Bed Color: Brown Wound Bed Constitution: Scab Skin Integrity Problem Comment: Discrete scab on the L side of patient's nose, s /p removal of skin cancer. Scab is intact w/ no swelling or erythema periwound. Will have nursing apply Silvasorb Ag gel to site. No need for wound care to follow going forward.
--- NOTE | 2017-09-21 15:39 | HOSPPROG ---
Hospitalist Progress Note Assessment/Plan: Acute hypoxemic respiratory failure 2/2 viral URI and suspect ongoing aspiration - 15 LPM --> 5 LPM. Had acute aspiration event 09/18. Serial PCT neg , doubt bacterial PNA. CXR pers reviewed and interpreted - no convincing consolidation, suspect viral process. -cont to observe off atbx -cont supportive care, guaifenesin, nebs, prn suction -wean O2 as able Dysphagia - h/o aspiration, he is on pureed diet. He had a significant aspiration event, requiring 15 LPM. Now back on 6 LPM. Could be symptom of advanced Parkinsons. -video swallow study in am. 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 Pablo was able to express that he believes he has 6 months of life left, but is not ready for hospice. He is open to outpt palliative care and this will be arranged. He wants to be home and does not want to be re-hospitalized. Called [facility], but unable to reach. At this time, I feel Pablo is able to make his medical decisions, but he is high risk for deterioration and would need [facility] to step in if that occurs. Aspiration and nutritional status are likely to become his end of life issues. Would revisit hospice. Subjective: Pt doing ok. No change in status overnight. Still on 5 LPM O2, taking little po. No fevers. Minimal cough. No CP or SOB. Objective: Vital Signs Temp Pulse Resp BP Pulse Ox 37.8 C 78 28 H 156/74 H 95 09/21/17 11:36 09/21/17 11:36 09/21/17 11:36 09/21/17 11:36 09/21/17 11:36 Microbiology 09/17/17 18:00 - Final Sputum, Expectorated Sputum Culture - Final 09/20/17 09/21/17 09/22/17 05:59 05:59 05:59 Intake Total 823 1867 Output Total 700 550 350 Balance 123 1317 -350 - Physical Exam Constitutional: chronically ill appearing Eyes: PERRL Ears, Nose, Mouth, Throat: moist mucous membranes Cardiovascular: regular rate and rhythym, no murmur, rub, or gallop Respiratory: no respiratory distress, inspiratory crackles Gastrointestinal: normoactive bowel sounds, soft, non-tender abdomen Skin: warm Musculoskeletal: generalized weakness Neurologic: other (masked facies, ongoing drooling, rigidity, cogwheeling) Psychiatric: other (soft spoken) ICD10 Worksheet Patient Problems: Problems Problem Status Onset 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
[2017-09-22] MEDS: ACETAMINOPHEN 650 MG SUPP PR PRN ×2 (00:05→04:10)
--- NOTE | 2017-09-22 05:10 | HOSPPROG ---
Hospitalist Progress Note Assessment/Plan: XC: Patient febrile most of the night. He is asymptomatic and other VS stable. Will repeat blood cultures and check UA. Will check CXR if respiratory status changes. 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
[2017-09-22] MEDS: guaiFENesin 200 MG/10 ML UDL PO SCH ×2 (08:39→20:40)
[2017-09-22] MEDS: ENOXAPARIN 40 MG/0.4 ML SYR SC SCH (08:49)
[2017-09-22] MEDS: NS 1,000 ML IV SCH (09:54)
--- NOTE | 2017-09-22 10:06 | ASMTCMCOM ---
CM Note CM Note Notes: CM spoke w/ Summer, RN and Shital PT regarding d/c POC. Pt had a video swallow study this afternoon. CM met w pt, caregiver and a friend for dispo planning. CM went over the difference between palliative and hospice. Caregiver and friend is interested in hospice. CM spoke w/ THUY Thomas regarding d/c POC. Martha is on board with whichever plan caregiver choses, Martha reports that caregiver has been in pts life for 15+ years. Referral sent to [facility] for Hospice consult. [facility] will contact caregiver directly to schedule a visit for informational. CM to follow. Plan: 24hr supervision, Complete HC; SENIOR CLINICAL DATA COORDINATOR and RN Date Signed: 09/22/2017 10:05 AM Electronically Signed By:BA Martinez
--- NOTE | 2017-09-22 14:04 | HOSPPROG ---
Hospitalist Progress Note Assessment/Plan: 87 yo M with dementia and likely PD presenting with viral URI and AHRF # Acute hypoxemic respiratory failure 2/2 viral URI and suspect ongoing aspiration - O2 needs have decreased significantly, CXR with bilateral opacities felt to be viral however now with persistent fever overnight will start unasyn for coverage of presumed aspiration pna. Will get repeat cxr today # viral pneumonia: as above, concern for bacterial superinfection # aspiration/aspiration pna: as above, though respiratory function seems to be improving, patient now febrile overnight. Added unasyn, repeat cxr pending. LINING MACHINE OPERATOR eval states that no diet would be considered safe--as next # aspiration: failed swallow eval with recommendation being NPO. Discussed with patients MDPOA and she is going to review his paperwork to see if he has addressed this--decision being allowing him to eat versus keeping him NPO. Would not favor G tube in this gentleman. # dementia: this seems to be at baseline, he has 24 hour caregivers, do not feel that he can meaningfully take part in these care plan conversations currently # suspected PD: with tremor and masked facies c/w Parkinson's # SOLIS/BPH: chronic stover # DVT ppx: LMWH # DNR # IP status Patient new to my care. Care plan reviewed with Dr. Dsouza. Further hx obtained from patients MDPOA. Subjective: patient febrile several times overnight, no new complaints this am Objective: Vital Signs Temp Pulse Resp BP Pulse Ox 36.9 C 80 36 H 145/85 H 93 09/22/17 12:00 09/22/17 12:00 09/22/17 12:00 09/22/17 12:27 09/22/17 12:00 09/21/17 09/22/17 09/23/17 05:59 05:59 05:59 Intake Total 1867 Output Total 550 1950 Balance 1317 -1950 elderly chronically ill appearing scleral injection poor dentition rrr no mrg coarse bs and rales at bilateral bases soft nt nd no cce warm dry well perfused minimally verbally interactive ICD10 Worksheet Patient Problems: Problems Problem Status Onset 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
[2017-09-22 15:17] LABS: PLATELET COUNT 173 10^3/uL (150-400)
[2017-09-22] MEDS: AMPICILLIN/SULBACTAM 1.5 GM VIAL IV SCH ×3 (15:43→23:10)
--- NOTE | 2017-09-22 16:28 | ASMTCMCOM ---
CM Note CM Note Notes: CM spoke w/ Chitra. Chitra reports that pt, caregiver and friend has changed their mind and does not want hospice and instead would like palliative instead. Pt, caregiver, friend, MDPOA has agreed to have a palliative arranged in home when pt discharged from hospital. CM to notify Chitra of time of d/c. CM to follow. Date Signed: 09/22/2017 04:27 PM Electronically Signed By:BA Martinez
[2017-09-23] MEDS: AMPICILLIN/SULBACTAM 1.5 GM VIAL IV SCH ×4 (05:29→21:01)
[2017-09-23] MEDS: guaiFENesin 200 MG/10 ML UDL PO SCH ×2 (08:38→20:43)
[2017-09-23] MEDS: ENOXAPARIN 40 MG/0.4 ML SYR SC SCH (08:38)
[2017-09-23] MEDS ORDERED: FUROSEMIDE 20 MG/2 ML VIAL IVP ONE (11:18)
--- NOTE | 2017-09-23 11:18 | HOSPPROG ---
Hospitalist Progress Note Assessment/Plan: 87 yo M with dementia and likely PD presenting with viral URI and AHRF. First encounter, chart reviewed. D/W caregiver and CM. # Acute hypoxemic respiratory failure 2/2 viral URI and suspect ongoing aspiration - O2 needs have decreased significantly,now on 5L, repeat CXR with bilateral opacities worse, fever continue unasyn for coverage of presumed aspiration pna. # viral pneumonia: as above, concern for bacterial superinfection # aspiration/aspiration pna: as above, patient afebrile overnight. unasyn MANAGER FIELD SERVICE eval states that no diet would be considered safe #Effusions: give lasix today # aspiration: failed swallow eval with recommendation being NPO. patients MDPOA said to allow food and drink. Would not favor G tube in this gentleman, aspirating own secretions # dementia: this seems to be at baseline, he has 24 hour caregivers, do not feel that he can meaningfully take part in these care plan conversations currently # suspected PD: with tremor and masked facies c/w Parkinson's # SOLIS/BPH: chronic stover # DVT ppx: LMWH # DNR # IP status Would rec Hospice. D/W CM. Will have to review with court appointed MDPOA. Subjective: No verbal interaction. Arousable. Opens eyes. Objective: Vital Signs Temp Pulse Resp BP Pulse Ox 37.5 C 82 26 H 156/83 H 95 09/23/17 08:00 09/23/17 08:00 09/23/17 08:00 09/23/17 08:00 09/23/17 08:00 Laboratory Results 09/22/17 15:07 09/22/17 09/23/17 09/24/17 05:59 05:59 05:59 Intake Total 900 Output Total 1950 1000 Balance -1950 -100 - Physical Exam Constitutional: appears nourished, not in pain, chronically ill appearing Eyes: PERRL, anicteric sclera, EOMI Ears, Nose, Mouth, Throat: moist mucous membranes, hearing normal, ears appear normal Cardiovascular: No JVD, No tachycardia, No edema Respiratory: reduced air movement, expiratory wheeze, rhonchi Gastrointestinal: No tenderness, No ascites, No guarding Genitourinary: stover in urethra Skin: warm, normal color, No mottled Musculoskeletal: no joint effusions, generalized weakness, No normal joint ROM Neurologic: No AAOx3 Psychiatric: not anxious, poor insight, poor judgement, poor memory, No thought process linear ICD10 Worksheet Patient Problems: Problems Problem Status Onset UTI (urinary tract infection) Acute Pneumonia Acute VRE (vancomycin-resistant Enterococci) Acute ~09/06/16 Hypertensive disorder, systemic arterial Active mechanical fall Active Failure to thrive Active Ataxia following other cerebrovascular disease Acute Frontal lobe and executive function deficit Acute Basal cell adenocarcinoma Acute Urinary retention Acute Leukocytosis, unspecified Acute Renal insufficiency, mild Acute Palliative care encounter Acute
--- NOTE | 2017-09-23 16:22 | ASMTCMCOM ---
XIOMARA Note XIOMARA Note Notes: Spoke with ROSAMARIA Cruz who states patient cannot be discharged home without hospice as palliative cannot manage the patient's medical needs. Contacted patient's MDPOA regarding the Dr's concerns and clarified hospice is the appropriate d/c plan. Martha understood and said she would talk to Hope the 24 hour caregiver. I had spoken with Hope earlier to explain to her why patient needed Hospice support. Hope stated she understood this was the option the patient needs. Spoke with the patient as well and he understood and said he was ok with the plan. Contacted Frances with [facility] to review these issues and discuss d/c plan being patient to be d/c'ed tomorrow to home with Hospice support. Patient needs a hospital bed, oxygen, and a suction machine which Frances will get in place as soon as Martha signs the consents. Spoke with Frances again at 4:00 PM(16:00) and Martha ([facility]) has not signed the consents she faxed to her this morning. This will have to happen to finish up the d/c arrangements. Frances's direct number is [phone]. XIOMARA left another message for Martha to finish the consents so we can complete the d/c tomorrow. XIOMARA will follow. Date Signed: 09/23/2017 04:22 PM Electronically Signed By:Paradise Adams LCSW
[2017-09-24 04:25] VITALS: BP 174/95
[2017-09-24] MEDS: AMPICILLIN/SULBACTAM 1.5 GM VIAL IV SCH ×2 (04:35→13:28)
[2017-09-24] MEDS: ACETAMINOPHEN 650 MG SUPP PR PRN (08:37)
[2017-09-24] MEDS: guaiFENesin 200 MG/10 ML UDL PO SCH (08:42)
--- NOTE | 2017-09-24 10:03 | PDIAF ---
- Diagnosis Diagnosis: aspiration PNA Code Status: Do Not Resuscitate - Medication Management Discharge Medications: Medications to Continue on Transfer Potassium Chloride [Klor-Con 8] 8 meq PO DAILY 05/31/16 [Last Taken 09/17/17] Furosemide [Lasix 20 MG (*)] 20 mg PO BID 07/10/16 [Last Taken 09/17/17] Acetaminophen [Tylenol Rectal] 650 mg AR Q4HRS PRN supp 09/24/17 [Last Taken Unknown] Discharge Medications: Refer to the Discharge Home Medication list for PRN reason. PICC Care - Routine: N/A - Orders Services needed: Home Care, Registered Nurse, Certified Diesel Locomotive Firer, Master [employer] Developer Home Care Face to Face: I certify that this patient was under my care and that I had the required [id number] encounter meeting the encounter requirements on the discharge day. My findings support the fact that the patient is homebound as defined in Home Care Face to Face Continued: CMS Chapter 7 Medicare Benefits Manual 30.1.1 , The condition of the patient is such that there exists a normal inability to leave home and consequently, leaving home would require a considerable and taxing effort. Isolation Type: Droplet Isolation Diet Recommendation: no restrictions on diet Diet Texture: Dysphagia 1 - Pureed, Healy Thick Liquids, Meds Crushed in Puree - Follow Up Care Current Providers and Referrals: Patient,NotPresent [Unknown] - As per Instructions
[2017-09-24] MEDS: ENOXAPARIN 40 MG/0.4 ML SYR SC SCH (10:18)
--- NOTE | 2017-09-24 14:08 | ASDISCHSUM ---
Discharge Information Plan Status:Hospice-Home Medically Cleared to Leave:09/24/2017 Discharge Date:09/24/2017 02:02 PM CM D/C Disposition: ADT D/C Disposition:Hospice Home Projected Discharge Date:09/24/2017 11:00 AM Transportation at D/C: Discharge Delay Reason: Follow-Up Date:09/24/2017 11:00 AM Discharge Slot: Final Diagnosis: Placement Information Referral Type:Palliative Care Referral ID:[id number] Provider Name: Address 1: Phone Number: Address 2: Fax Number: City: Selection Factors: State: Referral Type:*Home Health Care Services Referral ID:[id number] Provider Name: Address 1: Phone Number: Address 2: Fax Number: City: Selection Factors: State: Referral Type:*Hospice Referral ID:[id number] Provider Name:[facility] Address 1:[address] Phone Number: Address 2: Fax Number: [facility]:[place] Selection Factors: State:[place] Patient Contact Information Contact Name:BILLOLIVER Relationship:Friend Address: Work Phone: City: [facility] Phone: State/Zip Code: Email: Financial Information Financial Class:Medicare Primary Plan Desc:MEDICARE INPATIENT Primary Plan Number:[id number] Secondary Plan Desc:[employer]/MDR SUPPLEMENT Secondary Plan Number:[id number] Assessment Information [facility] CM Progress Note CM Note CM Note Notes: Pt admitted w/weakness, cough, decreased oral intake, ?PNA. Per H&P, pt lives at home and has 24 hr caregivers. Awaiting therapy recommendations. Palliative care consult ordered. CM will follow. Date Signed: 09/18/2017 12:14 PM Electronically Signed By:Qi Lagos RN [facility] CM Progress Note CM Note CM Note Notes: Palliative care conference scheduled for tomorrow when pt's main caregiver, Angelia, is available. Met w/pt and caregiver tulio. Conversation w/pt very difficult as he has great difficult getting words out, difficult to hear and long gaps in conversation. Tulio confirmed that he has round the clock private caregivers and also has HHC agency that provides OC RN and aide to come in once/wk to assist w/bathing. Angelia ([phone]) is main caregiver and will be here tomorrow. CM to meet w/her. pt's MDPOA is Martha Davies ([phone]); she too will hopefully be present for palliative tomorrow. Discussed w/Joseph from palliative care. Anticipate that pt will return home w/caregivers and HHC but plans should seem more clear after palliative and touching base w/primary caregiver tomorrow. Date Signed: 09/18/2017 02:49 PM Electronically Signed By:Qi Lagos RN [facility] Progress Note CM Note CM Note Notes: Pt had palliative care conf today. Dc plan is to return home w/30/12 caregivers. See previous CM note for primary caregivers contact info as well as MDPOA's. Pt will have palliative care consult; referral sent to [facility] and notified Shirley at [facility]. Hospice was brought up in palliative, pt not ready for this but open to palliative. Pt is also current w[facility] (RN, [facility]); spoke w/Lynette at this agency and sent referral/updates through [employer]. CM will folow. Date Signed: 09/19/2017 05:26 PM Electronically Signed By:Qi Lagos RN [facility] Progress Note CM Note CM Note Notes: CM spoke w/ NAMITA Wheeler and SAY Isaacs regarding d/c POC. Pt had a video swallow study this afternoon. CM met w pt, caregiver and a friend for dispo planning. CM went over the difference between palliative and hospice. Caregiver and friend is interested in hospice. CM spoke w/ THUY Thomas regarding d/c POC. Martha is on board with whichever plan caregiver choses, Martha reports that caregiver has been in pts life for 15+ years. Referral sent to [facility] for Hospice consult. [facility] will contact caregiver directly to schedule a visit for informational. XIOMARA to follow. Plan: 24hr supervision, [facility]; [employer] and RN Date Signed: 09/22/2017 10:05 AM Electronically Signed By:BA Martinez [facility] Progress Note CM Note CM Note Notes: XIOMARA spoke w/ [facility]. [facility] reports that pt, caregiver and friend has changed their mind and does not want hospice and instead would like palliative instead. Pt, caregiver, friend, MDPOA has agreed to have a palliative arranged in home when pt discharged from hospital. CM to notify [facility] of time of d/c. CM to follow. Date Signed: 09/22/2017 04:27 PM Electronically Signed By:BA Martinez [facility] Progress Note CM Note CM Note Notes: Spoke with ROSAMARIA Cruz who states patient cannot be discharged home without hospice as palliative cannot manage the patient's medical needs. [facility]ed [facility] regarding the Dr's concerns and clarified hospice is the appropriate d/c plan. Martha understood and said she would talk to Angelia the 24 hour caregiver. I had spoken with Aneglia earlier to explain to her why patient needed Hospice support. Angelia stated she understood this was the option the patient needs. Spoke with the patient as well and he understood and said he was ok with the plan. Contacted Frances with [facility] to review these issues and discuss d/c plan being patient to be d/c'ed tomorrow to home with Hospice support. Patient needs a hospital bed, oxygen, and a suction machine which Frances will get in place as soon as Martha signs the consents. Spoke with Frances again at 4:00 PM(16:00) and Martha ([facility]) has not signed the consents she faxed to her this morning. This will have to happen to finish up the d/c arrangements. Frances's direct number is [phone]. XIOMARA left another message for Martha to finish the consents so we can complete the d/c tomorrow. XIOMARA will follow. Date Signed: 09/23/2017 04:22 PM Electronically Signed By:Paradise Adams LCSW Case Management Discharge Plan Note Case Management Discharge Discharge Order Complete? Answers: Yes Patient to Obtain Answers: Other Notes: [facility] Arranged Answers: Other Notes: [facility] set up cecil y [facility] will Pick (Date 09/24/2017 01:30 PM & Time) ZULLY Complete Answers: No Case Management Transport Answers: Yes Form Complete Faxed Final Orders Answers: Yes Agency/Facility Transfer Answers: Yes Report Printed & Faxed to Receiving Agency Family Notified Answers: No Discharge Comments Notes: CM spoke w/ Cele Avalos NP and NAMITA Wheeler regarding d/c POC. CM coordinated d/c with Angelia, caregiver. Hope reports that pt has a [facility] bed. Hope reports that his friends will come over pts house and move it to another area of the home. Reny, an RN from [facility] come by to assess pt today. DC orders sent to [facility]. A nurse from [facility] will meet w/ pt at a quarter till 2pm today. CM available for changes. Plan: Home w/ [facility] Date Signed: 09/24/2017 11:18 AM Electronically Signed By:BA Martinez [facility] CM Progress Note CM Note CM Note Notes: CM notified [facility] that pt will be discharging home w/ hospice and their services will no longer be needed. Date Signed: 09/24/2017 02:06 PM Electronically Signed By:BA Martinez Intervention Information Intervention Type:*IM-Signed Date of Service:09/24/2017 01:46 PM Patient Type:Inpatient Staff Member:Maty Ornelas Hours: Discipline: Severity: Comment:
--- NOTE | 2017-09-24 14:56 | GDS ---
[f rep st] DISCHARGE SUMMARY DISCHARGE DIAGNOSES: 1. Acute hypoxemic respiratory failure. 2. Viral pneumonia. 3. Aspiration pneumonia. 4. Chronic aspiration. 5. Pleural effusions. 6. Dementia. 7. BPH with chronic indwelling Zayas. PHYSICAL EXAMINATION: GENERAL: The patient is alert. VITAL SIGNS: The patient is febrile at 38.1, pulse is 89, respiratory rate 22. Blood pressure is 174/95. He is saturating 91% on 6 L of oxygen. I have seen and evaluated the patient on the day of discharge. HOSPITAL COURSE: The patient is an 87-year-old male with long-standing chronic medical history. He was admitted to the hospital secondary to shortness of breath. He was evaluated and diagnosed with a cute hypoxemic respiratory failure. This has improved. He is requiring 5-6 L of oxygen at the time of disposition. Viral pneumonia with concern for bacterial super infection. The patient has been treated with IV ant ibiotic therapy during this hospital course. Aspiration pneumonia. Again, he has been treated with Unasyn. Speech therapy has evaluated the oneyda ent, and he is not safe to have oral intake without aspiration. Pleural effusions. These have been diuresed with Lasix. Chronic aspiration. Again, the patient has failed a swallow. It is recommended he go to hospice. Dementia. He appears to be close to his baseline mentation. DISPOSITION: The patient will be discharged home with home hospice and his 24-hour caregivers, which he has previously had for several years. There are no pending studies. Again, comfort and hospice are the recommendations at the time of disposition. DISCHARGE MEDICATIONS: Please refer to the EMR form for patient's medication regimen. TIME: I spent greater than 35 minutes in the care, coordination, and management of this patient's di sposition. /[id number]/MODL
== END 2017-09-24 14:02 | disposition hospice, home (50) | DRG 193 ==
LOC: EDUNIT# → OBSVTOIN 13:09 → F3E 14:27
PROVIDERS: ADMIT Hospitalist; ATTEND Hospitalist
DX: J12.9 Viral pneumonia, unspecified (principal); J96.01 Acute respiratory failure with hypoxia; J69.0 Pneumonitis due to inhalation of food and vomit; R13.10 Dysphagia, unspecified; J90 Pleural effusion, not elsewhere classified; N40.1 Benign prostatic hyperplasia with lower urinary tract symptoms; N13.8 Other obstructive and reflux uropathy; N18.9 Chronic kidney disease, unspecified; F03.90 Unspecified dementia, unspecified severity, without behavioral disturbance, psychotic disturbance, mood disturbance, and anxiety; R22.1 Localized swelling, mass and lump, neck; G20 Parkinson's disease; Z86.73 Personal history of transient ischemic attack (TIA), and cerebral infarction without residual deficits; Z66 Do not resuscitate
CPT/HCPCS: 92526-GN; 92610-GN; 92611-GN; 96365; 97162-GP; 97166-GO; 97530-GO; 97530-GP; G8978-GP-CM; G8979-GP-CL; G8980-GP-CM; G8987-GO-CN; G8988-GO-CM; G8996-GN-CK; G8996-GN-CN; G8997-GN-CJ; G8997-GN-CK; G8997-GN-CM; G8998-GN-CK; G8998-GN-CL; J0295; J1650; J1956; J7613